=== PATIENT | female | born 1955 | race American Indian/Alaskan Native ===

== ENCOUNTER 2016-05-15 07:43 | Outpatient (CLI) | payer BC ==
--- NOTE | 2016-05-15 09:03 | History and Physical Report ---
History of Present Illness Date of examination: 05/15/16 Chief complaint: new rt. breast nodule Medications and Allergies Allergies Allergy/AdvReac Type Severity Reaction Status Date / Time JEN Inhibitors Allergy Anaphylaxis Unverified 12/05/13 11:51 lisinopril Allergy Swelling Unverified 05/15/16 07:44
--- NOTE | 2016-05-15 09:04 | Procedure Note ---
Date of procedure: 05/15/16 Pre-op diagnosis: rt. breast nodule Post-op diagnosis: same Procedure: rt.breast bx Findings: solid tissue Anesthesia: local Surgeon: ISMA GOMEZ Estimated blood loss: none Pathology: list (breast) Specimen disposition: to lab Condition: stable Disposition: same day
--- NOTE | 2016-05-15 09:26 | Mammography Report ---
Ultrasound-guided right breast biopsy, marker placement, mammogram: Patient presents with a new right breast nodule in the periphery of the breast in the 1:00 location. Skin was cleansed and 1% lidocaine used for local anesthesia. A 21-gauge needle was initially placed into the nodule and attempts to aspirate with no success. A 13-gauge sheath was then placed through which a 14-gauge disposable Bard biopsy spring-loaded gun was utilized to take numerous sections through the lesion under ultrasound guidance. A marker was left in place. The entrance site was bandaged. Followup mammogram confirmed that the mammographic nodule corresponds to the biopsied nodule. There were no complications of the procedure. The patient was given followup instructions and discharged.
== END 2016-05-15 07:44 | disposition home or self-care (01) ==
LOC: US 07:43
PROVIDERS: ATTEND Pediatrics
DX: N63 Unspecified lump in breast (principal)
CPT/HCPCS: 19083; 88305; G0206; 88361

== ENCOUNTER 2017-01-26 20:36 | Emergency (ER) | payer OTHER, BC ==
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
[2017-01-26 23:43] LABS: Basophils % (Auto) 0.5 % (0.0-1.8); Eosinophils % (Auto) 7.1 % (0.0-4.3); Hemoglobin 13.5 gm/dl (10.1-14.3); Mean Corpuscular HGB Conc 33 % (30-34); Mean Corpuscular Hemoglobin 29 pg (28-32); Mean Corpuscular Volume 88 fl (79-97); Platelet Count 238 K/mm3 (140-440); Red Blood Count 4.69 M/mm3 (3.65-5.03); Red Cell Distribution Width 15.9 % (13.2-15.2); White Blood Count 9.2 K/mm3 (4.5-11.0)
[2017-01-26 23:47] LABS: Alanine Aminotransferase 14 units/L (7-56); Albumin 4.5 g/dL (3.9-5); Albumin/Globulin Ratio 1.6 %; Alkaline Phosphatase 51 units/L (35-129); Blood Urea Nitrogen 16 mg/dL (7-17); Calcium 9.8 mg/dL (8.4-10.2); Carbon Dioxide 25 mmol/L (22-30); Glucose 125 mg/dL (65-100); Lipase 38 units/L (13-60); Total Protein 7.4 g/dL (6.3-8.2)
[2017-01-26 23:48] LABS: Anion Gap 19 mmol/L; Chloride 101.5 mmol/L (98-107); Sodium 141 mmol/L (137-145)
[2017-01-27] MEDS ORDERED: MOTRIN PO ONE (07:47)
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
[2017-01-27 08:04] VITALS: BP 151/83
== END 2017-01-27 08:03 | disposition home or self-care (01) ==
LOC: ED 20:36
DX: S56.411A Strain of extensor muscle, fascia and tendon of right index finger at forearm level, initial encounter (principal); M25.561 Pain in right knee; M19.90 Unspecified osteoarthritis, unspecified site; I10 Essential (primary) hypertension; E11.9 Type 2 diabetes mellitus without complications; J45.909 Unspecified asthma, uncomplicated; Z85.3 Personal history of malignant neoplasm of breast; Z98.890 Other specified postprocedural states; V43.52XA Car driver injured in collision with other type car in traffic accident, initial encounter; Y93.9 Activity, unspecified; Y99.9 Unspecified external cause status; Y92.410 Unspecified street and highway as the place of occurrence of the external cause
CPT/HCPCS: 36415; 80053; 83690; 85025